=== PATIENT | male | born 1990 | race African-American/Black ===

== ENCOUNTER 2020-09-03 18:57 | Emergency (ER) | payer SELFPAY ==
--- NOTE | 2020-09-03 19:15 | DI.RAD.S_ITS ---
PROCEDURE: XR ACUTE ABDOMEN SERIES INDICATIONS: abdominal pain, left upper, with diarrhea, since vaccine TECHNIQUE: One view chest and two views of the abdomen were acquired. COMPARISON: None. FINDINGS: Surgical changes and devices: None. Chest: Lungs are clear. Heart size is normal. No pleural effusions. No pneumoperitoneum. Abdomen: Bowel gas pattern is normal. No suspicious calcifications. Visualized solid organ contours appear normal. Bones: No suspicious bony lesions. IMPRESSION: Normal study. Dictated by: Jalen Mortensen M.D. on 09/03/2020 at 19:28 Approved by: Jalen Mortensen M.D. on 09/03/2020 at 19:28
[2020-09-03 19:24] VITALS: BP 144/70; PULSE 77; RESP 16; TEMP 36.6; O2SAT 98; BMI 18.1
[2020-09-03] MEDS: MAG HYDROX/ALUMINUM/SIMETH SUS 20 ML, LIDOCAINE VISCOUS 2% 15 ML PO (19:24)
[2020-09-03 19:52] VITALS: BP 129/60; PULSE 59; RESP 16; O2SAT 97
[2020-09-03 20:00] VITALS: BP 117/67; PULSE 64; O2SAT 100
--- NOTE | 2020-09-04 02:25 | ED_ITS ---
HPI - Abdominal Pain General Chief Complaint: Abdominal Pain Stated Complaint: abd pain s/o covid vaccine Time Seen by Provider: 09/03/20 19:01 Source: patient Mode of arrival: Ambulatory Limitations: no limitations History of Present Illness HPI narrative: 30-year-old male smoker with noncontributory medical history presents with a chief complaint of some episodic left-sided abdominal cramping over the past few days. He denies any nausea or vomiting nor fever or chills, though he does admit to having a few loose stools He has no headache or blurred vision. He denies any runny nose, sore throat or cough. He states that ever since he got his Wallace Wallace vaccine he has had a decreased appetite, has not been drinking as much water and has had decreased bowel movements. He denies any trouble with urination such as dysuria, frequency or urgency. He denies any obvious provocation, palliation or radiation and states that the pain comes in waves and seems to have a mind of its own. MD complaint: abdominal pain Pain Consistency: intermittent Location: LUQ Severity: moderate Quality: cramping Radiation: none Relieving factors: nothing Exacerbating factors: nothing Associated symptoms: diarrhea Related Data Allergies Allergy/AdvReac Type Severity Reaction Status Date / Time No Known Drug Allergies Allergy Verified 09/03/20 19:24 Review of Systems Constitutional Constitutional: Denies chills, Denies fatigue, Denies fever(s), Denies frequent falls, Denies lethargy and Denies weakness Eyes Eyes: Denies change in vision, Denies eye discharge, Denies irritation and Denies loss of vision ENT Ears, Nose, Mouth, and Throat: Denies change in voice, Denies dizziness, Denies neck pain, Denies sore throat and Denies throat swelling Cardiovascular Cardiovascular: Denies chest pain, Denies irregular heart rhythm, Denies lightheadedness, Denies palpitations, Denies dyspnea, Denies dyspnea on exertion and Denies orthopnea Respiratory Respiratory: Denies cough, Denies dyspnea, Denies dyspnea on exertion and Denies wheezing Gastrointestinal Gastrointestinal: Reports abdominal pain, Denies change in bowel habits, Reports diarrhea, Denies nausea and Denies vomiting Musculoskeletal Musculoskeletal: Denies neck pain and Denies numbness Integumentary/Breasts Skin/Breast: Denies pruritus, Denies erythema, Denies rash and Denies wounds Neurologic Neurologic: Denies behavioral changes, Denies confusion, Denies dizziness, Denies frequent falls, Denies loss of vision, Denies numbness and Denies weakness Psychiatric Psychiatric: Denies anxiety, Denies behavioral changes, Denies confusion, Denies depression, Denies homicidal ideation and Denies suicidal ideation Endocrine Endocrine: Denies fatigue, Denies flushing and Denies palpitations Hematologic/Lymphatic Hematologic/Lymphatic: Denies easy bruising Allergic/Immunologic Allergic/Immunologic: Denies urticaria, Denies throat swelling and Denies wheezing Patient History Social History Smoking Status: Current some day smoker Smoking Status: Current some day smoker tobacco type: cigarettes alcohol intake frequency: holidays/special occasions only Substance Use Type: marijuana Exam Narrative Exam Narrative: GENERAL: [30] year old patient appears stated age. Thin, Well- developed patient, in mild distress. HEAD: Atraumatic. Normocephalic. EYES: Pupils equal round and reactive. Extraocular motions intact. No scleral icterus. No injection or drainage. ENT: Nose without bleeding, purulent drainage. Throat without erythema, tonsillar hypertrophy or exudate. Airway patent. NECK: Trachea midline. Non tender CARDIOVASCULAR: Regular rate and rhythm without murmurs, gallops, or rubs. RESPIRATORY: Clear to auscultation. Breath sounds equal bilaterally. No wheezes, rales, or rhonchi. GASTROINTESTINAL: Abdomen soft, non-tender, nondistended. Decreased bowel sounds across the lower portions of his belly EXTREMITIES: No edema or joint tenderness. BACK: Nontender without deformity or crepitance. No flank tenderness. NEURO: AOx3. SKIN: No rash or erythema of visible areas Initial Vital Signs Initial Vital Signs: Vital Signs Temperature 97.8 F 09/03/20 19:24 Pulse Rate 77 09/03/20 19:24 Respiratory Rate 16 09/03/20 19:24 Blood Pressure 144/70 H 09/03/20 19:24 Pulse Oximetry 98 09/03/20 19:24 Course Orders Ordered: ED Orders 09/03/20 19:15 XR acute abdomen series Stat Discontinued Medications Al Hydrox/Mg Hydrox/Simethicone 20 ml/ Lidocaine HCl 15 ml 0 ml PO NOW ONE Stop: 09/03/20 19:16 Last Admin: 09/03/20 19:24 Dose: 35 ml Documented by: MICHAEL Vital Signs Vital signs: Vital Signs - 8 hr 09/03/20 19:24 09/03/20 19:52 09/03/20 20:00 Temperature 97.8 F Pulse Rate 77 59 L 64 Respiratory Rate 16 16 Blood Pressure 144/70 H 129/60 117/67 Pulse Oximetry 98 97 100 MDM - Abdominal Pain Lab Data Point of care testing: Urine Dip Bedside Urine Glucose Negative Bedside Urine Bilirubin - Negative Bedside Urine Ketone - Negative Urine Specific [place] 1.030 Bedside Urine Occult Blood - Negative Bedside Urine pH 6.0 Bedside Urine Protein - Negative Bedside Urine Urobilinogen - Negative Bedside Urine Nitrite - Negative Bedside Urine Leukocytes - Negative Esterase Imaging Data Abdominal x-ray: Radiologist's Impression: [address] [id number] ReportSigned Patient: Jorge Mata MMR#: [id number]: 1990Acct:[id number]/Sex: 30 / MDate of Service: 09/03/20Loc: EDAccession Number: [id number] Procedure: XR acute abdomen series Ordering Provider: Gianluca Carrillo D.O. PROCEDURE: XR ACUTE ABDOMEN SERIES INDICATIONS: abdominal pain, left upper, with diarrhea, since vaccine TECHNIQUE: One view chest and two views of the abdomen were acquired. COMPARISON: None. FINDINGS: Surgical changes and devices: None. Chest: Lungs are clear. Heart size is normal. No pleural effusions. No pneumoperitoneum. Abdomen: Bowel gas pattern is normal. No suspicious calcifications. Visualized solid organ contours appear normal. Bones: No suspicious bony lesions. IMPRESSION: Normal study. Dictated by: Jalen Mortensen M.D. on 09/03/2020 at 19:28 Approved by: Jalen Mortensen M.D. on 09/03/2020 at 19:28 Discharge Plan Departure Patient Disposition: Home Clinical Impression: Abdominal pain Qualifiers: Abdominal location: generalized Qualified Code(s): R10.84 - Generalized abdominal pain Instructions: Constipation, DI for Abdominal Pain-Adult Activity Restrictions/Additional Instructions: *You have been diagnosed with [ abdominal pain, which given your story and Xray could certainly be due to constipation ] *What to do: *Take over the counter medications as directed: 1. Metamucil - is a bulk forming laxative and adds fiber 2. Colace - softens your stool 3. Dulcolax suppository - stimulates your bowels *Follow up with your primary care provider in 2-3 days, call for appointment *Return to ER if you should have any new, worsening or concerning symptoms *Drink plenty of water and eat foods high in fiber *Stay as active as you can as this helps move your bowels as well
== END 2020-09-03 20:26 | disposition home or self-care (01) ==
PROVIDERS: Emergency Provider Emergency Medicine
DX: R10.84 Generalized abdominal pain (principal)
CPT/HCPCS: 74022; 81003; 99283

== ENCOUNTER → 2020-10-26 08:37 | Outpatient (CLI) | payer SELFPAY ==
[2020-10-26 20:17] LABS: Urine N gonorrhoeae NOT DETECTED
[2020-10-26 20:25] LABS: Urine Chlamydia NOT DETECTED
== END ==
PROVIDERS: PCP Physician Assistant; Visit Provider Physician Assistant
DX: Z20.2 Contact with and (suspected) exposure to infections with a predominantly sexual mode of transmission (principal)
CPT/HCPCS: 87491; 87591